=== PATIENT | female | born 2000 | race Caucasian/White ===

== ENCOUNTER 2024-03-15 14:03 | Outpatient (AMB) | payer BC, SELFPAY ==
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
== END 2024-03-15 14:58 | disposition home or self-care (01) ==
PROVIDERS: PCP Student in an Organized Health Care Education/Training Program; Visit Provider Clinical Nurse Specialist Psychiatric/Mental Health
DX: F40.10 Social phobia, unspecified (principal); F90.9 Attention-deficit hyperactivity disorder, unspecified type
CPT/HCPCS: 99214

== ENCOUNTER → 2024-03-15 14:03 | Outpatient (BNVA) | payer BC, SELFPAY | PROVIDERS: PCP Pediatrics; Visit Provider Clinical Nurse Specialist Psychiatric/Mental Health ==

== ENCOUNTER 2024-04-19 14:48 | Outpatient (AMB) | payer BC, SELFPAY ==
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
== END 2024-04-19 15:42 | disposition home or self-care (01) ==
LOC: HO.HOP 14:48
PROVIDERS: PCP Student in an Organized Health Care Education/Training Program; Visit Provider Clinical Nurse Specialist Psychiatric/Mental Health
DX: F90.9 Attention-deficit hyperactivity disorder, unspecified type (principal); F40.10 Social phobia, unspecified
CPT/HCPCS: 99214

== ENCOUNTER → 2024-04-19 14:48 | Outpatient (BNVA) | payer BC, SELFPAY | PROVIDERS: PCP Student in an Organized Health Care Education/Training Program; Visit Provider Clinical Nurse Specialist Psychiatric/Mental Health ==

== ENCOUNTER 2024-05-24 15:54 | Outpatient (AMB) | payer BC, SELFPAY ==
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
== END 2024-05-24 16:36 | disposition home or self-care (01) ==
LOC: HO.HOP 15:54
PROVIDERS: PCP Student in an Organized Health Care Education/Training Program; Visit Provider Clinical Nurse Specialist Psychiatric/Mental Health
DX: F41.1 Generalized anxiety disorder (principal); F40.10 Social phobia, unspecified
CPT/HCPCS: 99215

== ENCOUNTER → 2024-05-24 15:54 | Outpatient (BNVA) | payer BC, SELFPAY | PROVIDERS: PCP Student in an Organized Health Care Education/Training Program; Visit Provider Clinical Nurse Specialist Psychiatric/Mental Health ==

== ENCOUNTER 2024-07-04 15:35 | Outpatient (AMB) | payer BC, SELFPAY ==
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
== END 2024-07-04 16:22 | disposition home or self-care (01) ==
LOC: HO.HOP 15:35
PROVIDERS: PCP Student in an Organized Health Care Education/Training Program; Visit Provider Clinical Nurse Specialist Psychiatric/Mental Health
DX: F41.1 Generalized anxiety disorder (principal)
CPT/HCPCS: 99215

== ENCOUNTER → 2024-07-04 15:35 | Outpatient (BNVA) | payer BC, SELFPAY | PROVIDERS: PCP Student in an Organized Health Care Education/Training Program; Visit Provider Clinical Nurse Specialist Psychiatric/Mental Health ==

== ENCOUNTER 2024-08-11 17:38 | Outpatient (AMB) | payer OTHER, SELFPAY ==
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
== END 2024-08-11 17:40 | disposition home or self-care (01) ==
LOC: HO.HOP 17:39
PROVIDERS: PCP Student in an Organized Health Care Education/Training Program; Visit Provider Clinical Nurse Specialist Psychiatric/Mental Health
DX: F41.1 Generalized anxiety disorder (principal); F90.0 Attention-deficit hyperactivity disorder, predominantly inattentive type; F40.10 Social phobia, unspecified
CPT/HCPCS: 99214

== ENCOUNTER → 2024-08-11 17:38 | Outpatient (BNVA) | payer OTHER, SELFPAY | PROVIDERS: PCP Student in an Organized Health Care Education/Training Program; Visit Provider Clinical Nurse Specialist Psychiatric/Mental Health | DX: F41.1 Generalized anxiety disorder (principal); F90.0 Attention-deficit hyperactivity disorder, predominantly inattentive type; F40.10 Social phobia, unspecified ==

== ENCOUNTER 2024-09-08 10:33 | Outpatient (AMB) | payer OTHER, SELFPAY ==
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
== END 2024-09-08 10:37 | disposition home or self-care (01) ==
LOC: HO.HOP 10:33
PROVIDERS: PCP Student in an Organized Health Care Education/Training Program; Visit Provider Clinical Nurse Specialist Psychiatric/Mental Health
DX: F41.1 Generalized anxiety disorder (principal); F90.0 Attention-deficit hyperactivity disorder, predominantly inattentive type; F40.10 Social phobia, unspecified
CPT/HCPCS: 99214

== ENCOUNTER → 2024-09-08 10:33 | Outpatient (BNVA) | payer OTHER, SELFPAY | PROVIDERS: PCP Student in an Organized Health Care Education/Training Program; Visit Provider Clinical Nurse Specialist Psychiatric/Mental Health ==

== ENCOUNTER 2024-12-08 18:00 | Outpatient (AMB) | payer OTHER, SELFPAY ==
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
== END 2024-12-08 18:01 | disposition home or self-care (01) ==
LOC: HO.HOP 18:00
PROVIDERS: PCP Student in an Organized Health Care Education/Training Program; Visit Provider Clinical Nurse Specialist Psychiatric/Mental Health
DX: F41.1 Generalized anxiety disorder (principal); F90.0 Attention-deficit hyperactivity disorder, predominantly inattentive type; F40.10 Social phobia, unspecified
CPT/HCPCS: 98006

== ENCOUNTER 2025-02-09 11:52 | Outpatient (AMB) | payer OTHER, SELFPAY ==
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
--- OUTSIDE RECORDS SUMMARY | 2025-02-09 15:19 | XMS_ITS | Clinical Summary ---
Author Organization [facility] Address [address] [place] [phone] Phone Care Team Providers Care Frontload Driver Name Role Phone Unavailable Primary Care Provider Unavailabl e Allergies No known active allergies Medications NUVARING 0.12-0.015 MG/24HR vaginal ring Insert 1 Units into the vagina. 9 10/27/2018 Active sertraline 100 MG tablet Take 1 tablet by mouth daily. 5 11/03/2018 Active metoprolol succinate XL 50 MG 24 hr tablet Take 50 mg by mouth daily. 1 02/28/2019 Active valACYclovir 500 MG tablet TAKE 1 TABLET BY MOUTH TWICE A DAY FOR 14 DAYS 1 06/28/2019 Active Active Problems Problem Noted Date Diagnosed Date Asthma, exercise induced 05/30/2019 Substance use disorder 05/26/2019 Assessment & Plan (05/26/2019 11:15 AM EDT): marijuana Anxiety 11/15/2018 Major depressive disorder with single episode, i n remission 11/15/2018 Immunizations Immunization Administration Dates Next Due HPV Vaccine 9 Valent 09/28/2023,07/08/2019 Hep A, Adult 09/21/2023 Hep A, ped/adol 05/26/2019 Hep B, ped/adol 09/17/2017,10/07/2016,07/21/2016 IPV 05/26/2019 Influenza, injectable, MDCK, preservative free, quadrivalent 09/02/2023 Influenza, injectable, quadr ivalent, preservative free 12/05/2021 MMR 09/30/2012,08/12/2012 Meningococcal Conj (Menactra) MCV4P 09/17/2017 PPD Test 05/26/2019 Tdap 09/21/2023, 3,09/30/2012,08/12 Typhoid, ViCPs 10/12/2023 Social History Tobacco Use Types Packs/Day Years Used Date Smoking Tobacco: Every Day Smokeless Tobacco: Never Tobacco Cessation:Counseling Given: Yes Comments:tried a cigarette once Alcohol Use Standard Drinks/Week Comments Not Currently 0 (1 standard drink = 0.6 oz pur e alcohol) has tried alcohol Hunger/Food Answer Date Recorded In the last 12 months, did y ou or your family ever eat less than you felt you should because there wasn't enough money for food? No 05/26/2019 Stable Housing Answer Date Recorded Are you worried that in the next 2 months you may not have stable housing? No 05/26/2019 Transportation Concerns Answer Date Rec orded In the last 12 months, have you or your family ever had to go without healthcare because you didn't have a way to get there? No 05/26/2019 Hazards in Home Answer Date Recorded Think about the place you li ve. Do you have problems with any of the following? Pests (mice or roaches), mold, no/not working smoke detectors, water leaks, no window guards. No 2018 Financing Utilities Answer Date Recorde d In the last 12 months, has t he electric, gas, oil, or water company threatened to shut off your services in your home? No 05/26/2019 Safety at Home Answer Date Recorded Are you or your family worried about feeling saf e in your home? No 05/26/2019 Outside Support Answer Date Recorded Do you feel that you need mo re support from other people or programs to help you care for yourself or your family? No 05/26/2019 Understanding Health Concerns Answer Da te Recorded Do you need help understandi ng your or your child's healthcare needs (diagnosis, medications, plan, etc.)? No 05/26/2019 Financing Health Concerns Answer Date R ecorded In the last 12 months, was t here a time when your child needed to see a doctor or get medications or supplies but could not because of cost? No 05/26/2019 Missing School or Work Answer Date Kuldip rded Did you or your child miss s chool or work because of a health problem that could have been avoided? Yes 05/26/2019 Comments No Sex and Gender Information Value Date Recorded Sex Assigned at Not on file Legal Sex Female 4:20 PM EST Gender Identity Not on file Sexual Orientation Not on file Last Filed Vital Signs Vital Sign Reading Time Taken Comments Blood Pressure 107/69 05/26/2019 9:03 AM EDT Pulse 64 07/24/2023 1:41 PM EDT Temperature 36.5 ??C (97.7 ??F) 07/24/2023 1:41 PM ED T Respiratory Rate - - Oxygen Saturation 97% 07/24/2023 1:41 PM EDT Inhaled Oxygen Concentration - - Weight 56 kg (123 lb 6.4 oz) 07/24/2023 1:41 PM EDT Height 171.5 cm (5' 7.5 ) 05/26/2019 9:03 AM EDT Body Mass Index 19.04 05/26/2019 9:03 AM EDT Plan of Treatment Health Maintenance Due Date Last Done Comments Men B Vaccine (1 of 2 - Standard) 2017 IPV Vaccines (2 of 3 - Adult catch-up series) 06/23/2019 05/26/2019 HPV Vaccines (3 - 3-dose series) 12/21/2023 09/28/2023, 07/08/2019 Influenza Vaccines (#1) 2024 09/02/2023, 12/05 COVID-19 Vaccine (2 - season) 2024 09/02/2023 DTaP,Tdap,and Td Vaccines (5 - Td or Tdap) 09/21/2033 09/21/2023, 04/04/2013, 09/30/2012, Additional history exists MMR Vaccines Completed 09/30/2012, 08/12/2012 Hepatitis B Vaccines Completed 09/17/2017, 10/07/2016, 07/21/2016 Meningococcal Vaccine Completed 09/17/2017 Hepatitis A Vaccines Completed 09/21/2023, 05/26/20 19 HIB Vaccines Aged Out No longer eligi ble based on patient's age to complete this topic Pneumococcal Vaccine Aged Out No long er eligible based on patient's age to complete this topic
== END 2025-02-09 11:52 | disposition home or self-care (01) ==
LOC: HO.HOP 11:52
PROVIDERS: PCP Student in an Organized Health Care Education/Training Program; Visit Provider Clinical Nurse Specialist Psychiatric/Mental Health
DX: F41.1 Generalized anxiety disorder (principal); F90.0 Attention-deficit hyperactivity disorder, predominantly inattentive type; F40.10 Social phobia, unspecified
CPT/HCPCS: 99214

== ENCOUNTER → 2025-02-09 11:52 | Outpatient (BNVA) | payer OTHER, SELFPAY | PROVIDERS: PCP Student in an Organized Health Care Education/Training Program; Visit Provider Clinical Nurse Specialist Psychiatric/Mental Health | DX: F41.1 Generalized anxiety disorder (principal); F90.0 Attention-deficit hyperactivity disorder, predominantly inattentive type; F40.10 Social phobia, unspecified ==

== ENCOUNTER 2025-06-12 10:57 | Outpatient (AMB) | payer OTHER, SELFPAY ==
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
--- OUTSIDE RECORDS SUMMARY | 2025-06-12 11:57 | XMS_ITS | Clinical Summary ---
Author Organization [facility] Address [address] [place] [id number] Phone Care Team Providers Care Bread Icer Name Role Phone Unavailable Primary Care Provider [...] [phone] 07/24/2023 1:41 PM EDT Temperature 36.5 C (97.7 F) 07/24/2023 1:41 PM EDT Respiratory Rate - - Oxygen Saturation 97% 07/24/2023 1:41 PM EDT Inhaled Oxygen Concentration - - Weight 56 kg (123 lb 6.4 oz) 07/24/2023 1:41 PM EDT Height 171.5 cm (5' 7.5 ) 05/26/2019 9:03 AM EDT Body Mass Index 19.04 05/26/2019 9:03 AM EDT Plan of Treatment Health Maintenance Due Date Last Done Comments IPV Vaccines (2 of 3 - Adult catch-up series) 06/23/2019 05/26/2019 HPV Vaccines (3 - 3-dose series) 12/21/2023 09/28/2023, 07/08/2019 COVID-19 Vaccine (2 - season) 2024 09/02/2023 Influenza Vaccines (#1) 2025 09/02/2023, 12/05 DTaP,Tdap,and Td Vaccines (5 - Td or Tdap) 09/21/2033 09/21/2023, 04/04/2013, 09/30/2012, Additional history exists MMR Vaccines Completed 09/30/2012, 08/12/2012 Hepatitis B Vaccines Completed 09/17/2017, 10/07/2016, 07/21/2016 Meningococcal Vaccine Completed 09/17/2017 Hepatitis A Vaccines Completed 09/21/2023, 05/26/20 19 HIB Vaccines Aged Out No longer eligi ble based on patient's age to complete this topic Men B Vaccine Aged Out No longer elig ible based on patient's age to complete this topic Pneumococcal Vaccine Aged Out No long er eligible based on patient's age to complete this topic
== END 2025-06-12 11:11 | disposition home or self-care (01) ==
LOC: HO.HOP 10:57
PROVIDERS: PCP Student in an Organized Health Care Education/Training Program; Visit Provider Clinical Nurse Specialist Psychiatric/Mental Health
DX: F41.1 Generalized anxiety disorder (principal); F90.0 Attention-deficit hyperactivity disorder, predominantly inattentive type; F40.10 Social phobia, unspecified
CPT/HCPCS: 99214

== ENCOUNTER 2025-08-08 10:18 | Outpatient (AMB) | payer OTHER, SELFPAY ==
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
--- OUTSIDE RECORDS SUMMARY | 2025-08-08 12:05 | XMS_ITS | Clinical Summary ---
Author Organization [facility] Address [address] [place] [phone] Phone Care Team Providers Care Night Monitor Name Role Phone Reina Almeida Primary Care Provider Allergies No known active allergies Medications sertraline (ZOLOFT) 100 MG tablet Active methylphenidate HCl (RITALIN) 5 MG tablet Occasionally as needed 3 Active Lactobacillus acidophilus (PROBIOTIC ORAL) Take by mouth. Activ e metoprolol succinate (TOPROL-XL) 25 MG 24 hr tabletIndicatio ns:Anxiety Take 1 tablet (25 mg total) by mouth daily for 14 days. 14 tablet 4 Active escitalopram oxalate (LEXAPRO) 10 MG tablet 15 mg. 4 Active etonogestreL-et hinyl estradioL (NUVARING) 0.12-0.015 mg/24 hr vaginal ring Insert vaginally and leave in place for 3 consecutive weeks, then remove for 1 week. Insert vaginally and leave in place for 3 consecutive weeks, then remove for 1 week. 3 each 6 4 Active Active Problems Problem Noted Date Diagnosed Date Annual physical exam 03/04/2024 Assessment & Plan (03/04/2024 4:02 PM EDT): This is a 23 y.o. female who presents for a complete physical exam. Past medical history, surgical history, social history, family history and allergies reviewed and document in chart. -Blood pressure taken, no signs of hypertension. -General health screening appropriate for age reviewed -General nutrition recommendations reviewed: 5 servings of fruits and vegetables, adequate protein. -Exercise recommendations reviewed: 150 minutes of cardiovascular exercise weekly. At least two strength training sessions weekly for muscle mass and bone health. -Breast cancer screening discussed: NA -Colon cancer screening discussed: NA -Cervical cancer screening discussed: Last pap: July 2021. Result: ASCUS/HPV+. Will repeat in July 2024. -Smoking cessation: NA -Lung Cancer Screening: NA -Abdominal Aortic Aneurysm: NA -Osteoporosis screening discussed: NA -Prediabetes and Type 2 Diabetes Screening: NA -Hyperlipidemia screening for people 35 - 70 with BMI >25: NA -STI screening: Ordered -One lifetime HIV and Hep C test: Ordered -IPV screen: negative -PHQ2: 0 -Immunizations reviewed: Due for 3rd Gardisil -Labs as ordered -Regular vision and dental exams recommended: UTD -Annual physical exam recommended Atypical squamous cells of u ndetermined significance (ASCUS) on Papanicolaou smear of cervix 10/09/2023 Assessment & Plan (03/04/2024 3:36 PM EDT): Jul 2023. ASCUS/HPV+. Plan to repeat pap in 1 year. Sees gynecology. HSV (herpes simplex virus) anogenital infection 10/09/2023 Assessment & Plan (03/04/2024 3:38 PM EDT): Diagnosed in 2017- was having recurrent genital outbreaks. She was started on suppressive therapy but has not been taking. Has been a long time since she had an outbreak. Will call in the future if she has an outbreak. Assessment & Plan (10/09/2023 9:32 AM EST): Reviewed outbreak history as well as likely first oral outbreak. Option for episodic treatment vs daily suppression discussed. Kenji would like to try daily suppression. Rx sent. We also discussed potential benefit of taking lysine to reduce outbreaks. Encouraged reaching out if she continues to have outbreaks or with any other questions/concerns. Anxiety 11/15/2018 Assessment & Plan (03/04/2024 4:18 PM EDT): Has a psychiatrist. Recently discussing a possible ADHD diagnosis. Trialed Ritilin in the past and found it helpful. Difficult transition after leaving [facility] and going to public school. Ended up going back to [employer] to finish high school. Had some academic testing which mostly showed her anxiety was getting the way of work. Taking sertraline 100mg daily. Was prescribed Metoprolol XR 50mg daily in 10th grade by psychiatrist for somatic anxiety symptoms. Does not feel like it made a difference. Will decrease to 25mg daily, see how she feels and then discontinue. Will check in in two weeks to let me know. Working with psychiatrist to tweak medications. Sees therapist. Major depressive disorder with single episode, i n remission 11/15/2018 Resolved Problems Problem Noted Date Diagnosed Date Resolved Date Counseling about travel 11/10/2023 0403/2024 Assessment & Plan (11/10/2023 6:13 PM EST): Leaving for [facility] for 2 months where she will be in and out of endemic areas for malaria. She has received all required vaccinations. -Malarone prescribed. Patient does not need to take prophylaxis for the first week as she will be in [facility]. -She will then begin taking the medication 2 days prior to leaving for the endemic area. She will continue to take the medication throughout remainder of her trip and for 1 week afterwards. -We did discuss possibly a break from medication while she is in the [facility], making sure that she restarts the medication 2 days prior to being in an endemic area and to continue for 1 week afterwards. Patient voiced understanding. Asthma, exercise induced 05/30/201903/2024 Assessment & Plan (03/04/2024 3:34 PM EDT): Exercised induced Substance use disorder 05/26/201903/04 Overview (03/01/2024): Last Assessment & Plan: marijuana Encounters Date Type Department Care Team Description 06/30/2025 Telephone [facility] [address] [place] [address] Nita Perez CNM Appointment from Last 3 Months Immunizations Immunization Administration Dates Next Due HPV9 03/04/2024,09/28/2023,07/08/2019 02/29/2024 Hepatitis A, Adult 09/21/2023 Hepatitis A, ped/adol, 2 dose 05/26/2019 Hepatitis B, unspecified formulation 09/17/2017, 10/07/2016,07/21/2016 IPV 05/26/2019 Influenza Quadrivalent MDCK Preservative Free IM 09/02/2023 Influenza Quadrivalent Prese rvative Free IM 12/05/2021 MMR 09/30/2012,08/12/2012 Meningococcal MCV4, unspecif ied Formulation 09/17/2017 PPD Test 05/26/2019 Tdap 09/21/2023, 3,09/30/2012,07/31 Typhoid, ViCPs 10/12/2023 Family History Medical History Relation Comments Asthma Father Eczema Father No Known Problems Maternal Grandfather Airplane crash No Known Problems Maternal Grandmother Shot in t he head Cholelithiasis Mother Other Sister TBI Relation Status Comments Father Alive Maternal Grandfather Maternal Grandmother Mother Alive Paternal Grandfather Alive Paternal Grandmother Alive Sister Alive Social History Tobacco Use Types Packs/Day Years Used Date Smoking Tobacco: Never Smokeless Tobacco: Never Alcohol Use Standard Drinks/Week Comments Yes 0 (1 standard drink = 0.6 oz pur e alcohol) Weekends Education Answer Date Recorded Are you interested in more education? Not on panchito e 03/27/2023 Are you concerned about learning? Not on file 03/27/2023 No 03/27/2023 No 03/27/2023 Digital Access Answer Date Recorded No 04/27/2023 No 04/27/2023 Reliable internet access at home? Not on file 04/27/2023 Device with a working camera? Not on file Comments No Sex and Gender Information Value Date Recorded Sex Assigned at Female 03/04/2024 3:21 PM EDT Legal Sex Female 8:46 PM EDT Gender Identity Female 03/04/2024 3:21 PM EDT Sexual Orientation Queer 03/04/2024 3: 21 PM EDT Last Filed Vital Signs Vital Sign Reading Time Taken Comments Blood Pressure 100/70 07/21/2024 12:00 PM EDT Pulse 65 03/04/2024 3:21 PM EDT Temperature 36.3 C (97.4 F) 11/10/2023 4:31 PM EST Respiratory Rate - - Oxygen Saturation 99% 03/04/2024 3:21 PM EDT Inhaled Oxygen Concentration - - Weight 50.8 kg (112 lb) 07/21/2024 12:00 PM EDT Height 178.7 cm (5' 10.35 ) 07/21/2024 12:00 PM EDT Body Mass Index 15.91 07/21/2024 12:00 PM EDT Plan of Treatment Upcoming Encounters Date Type Department Care Team (Late st Contact Info) Description 04/24/2026 10:00 AM EDT Office Visit [facility] [address] [place] [address] Reina Almeida [address] [facility] [place] [address] [email or web address] Health Maintenance Due Date Last Done Comments SMOKING Hx and SMOKELESS TOBACCO SCREENING 2014 DEPRESSION SCREENING 03/04/2025 03/04/2024 INFLUENZA VACCINE (#1) 2025 09/02/2023, 2021 CHLAMYDIA SCREENING 07/06/2025 07/06/2024, 2 PAP SMEAR 07/21/2025 07/21/2024, 07/31/2023 COVID-19 VACCINE ( season) 2025 09/02/2023 Adult Td,Tdap Booster 09/21/2033 09/21/2023 , 04/04/2013, 09/30/2012, Additional history exists MENINGOCOCCAL VACCINES (ACWY) Completed 09/17/2017 HEPATITIS A VACCINES Completed 09/21/2023, 05/26/20 19 HPV VACCINES Completed 03/04/2024, 09/01, 07/08/2019 HEPATITIS C SCREENING Completed 07/06/2024 HIV ONE-TIME SCREENING (18-65 YEARS) Completed 07/06/2024 HIB VACCINES Aged Out No longer eligi ble based on patient's age to complete this topic MENINGOCOCCAL VACCINES (B) Aged Out N o longer eligible based on patient's age to complete this topic PNEUMOCOCCAL VACCINES (0-49 years) Aged Out No longer eligible based on patient's age to complete this topic Medical Devices Not on file Procedures Procedure Name Priority Date/Time Associated Diagnosis Comments PAP TEST Routine 07/21/2024 12:00 AM EDT CHLAMYDIA TRACHOMATIS AND NEISSERIA GONORRHOEAE NUCLEIC ACID DETECTION Routine 07/06/2024 2:55 PM EDT Counseling for sexually transmitted disease HEPATITIS C ANTIBODY, QUALITATIVE Routine 07/06/2024 2:55 PM EDT Need for hepatitis C screening test from Last 3 Months or Most Recently Relevant to Health Maintenance Results * Pap Test (07/21/2024 12:00 AM EDT) 07/21/2024 07/22/2024 10: 39 AM EDT Narrative SEE NARRATIVE - 07/29/2024 10:57 [place] [address] Fiberglass Roller: Mily Escobar MD MACHINE PULLER OVER Cytology Report FINAL DIAGNOSIS A. PAP SMEAR (THIN PREP) CE: SPECIMEN ADEQUACY: Satisfactory for evaluation; transformation zone present. INTERPRETATION: NEGATIVE FOR INTRAEPITHELIAL LESION OR MALIGNANCY. This specimen was analyzed by the automated ThinPrep Imaging System (CBA PHARMA Sb.) and the selected fallon were reviewed by a knot cutter. Electronically Signed Out By: MINDY Patel(ASCP) The Pap test is a screening test primarily for squamous cancers and precursors and has associated false-negative and false-positive results. New technologies such as liquid-based preparations may decrease but will not eliminate all false-negative results. Regular sampling and follow-up of unexplained clinical signs and symptoms are recommended to minimize false negative results. CLINICAL HISTORY Date of Last Menstrual Period: 07-12-2024 Contraceptive History: Nuva Ring Other Clinical Conditions: Screening Pap SPECIMEN SOURCE A: PAP SMEAR (THIN PREP) CE Patient Name: KENJI PIZARRO : 2000 (Age: 24) Sex: F Institution: [facility] Location: [facility] Date of Collection: 07/21/2024 Date of Reported: 07/29/2024 10:57 Results to: Nita Perez CNM Nita Perez CNErnesto CYTOLOGY ORDERABLES Natacha l Result SEE NARRATIVE * Chlamydia Trachomatis and Neisseria Gonorrhoeae Nucleic Acid Detection (07/06/2024 2:55 PM EDT) CHLAMYDIA TRACHOMATIS Not Detected Not Detected [facility] NEISERIA GONORRHOEAE Not Detected Not Detected [facility] SPECIMEN TYPE URINE [facility] Urine (Urine) 07/06/2024 2:5 5 PM EDT 07/06/2024 3:11 PM EDT Reina Rossi-Emily NON CULTURE MICROBIOLOGY Fi nal Result Performing Organization Address [facility]/ZIP Co de Phone Number [address] [address] * Hepatitis C antibody, qualitative (07/06/2024 2:55 PM EDT) HCV NON-REACTIV E NON-REACTI VE [facility] Blood 07/06/2024 2:55 PM EDT 07/06/2024 3:02 PM EDT Reina Rossi-Emily LAB BLOOD ORDERABLES Final Result Performing Organization Address [facility] Co de Phone Number [address] [address] from Last 3 Months or Most Recently Relevant to Health Maintenance Insurance Ulule Ulule Ulule Ulule Ulule Ulule Care Teams Night Monitor Relationship Specialty Start Date End Date Reina Almeida [address] [place] [address], [address] [place] [address] [email or web address] PCP - General Family Medicine 09/28/23 Additional Source Comments The information contained in this document represents components of the legal health record. It is not the complete legal health record.[facility]
--- OUTSIDE RECORDS SUMMARY | 2025-08-08 12:05 | XMS_ITS | Clinical Summary ---
Author Organization [facility] Address [address] [place] [phone] Phone Care Team Providers Care Head Bookkeeper Name Role Phone Unavailable Primary Care Provider [...] series) 12/21/2023 09/28/2023, 07/08/2019 Influenza Vaccines (#1) 2025 09/02/2023, 12/05 COVID-19 Vaccine (2 - season) 2025 09/02/2023 DTaP,Tdap,and Td Vaccines (5 - Td [...]
== END 2025-08-08 10:31 | disposition home or self-care (01) ==
LOC: HO.HOP 10:18
PROVIDERS: PCP Student in an Organized Health Care Education/Training Program; Visit Provider Clinical Nurse Specialist Psychiatric/Mental Health
DX: F41.1 Generalized anxiety disorder (principal); F90.0 Attention-deficit hyperactivity disorder, predominantly inattentive type; F40.10 Social phobia, unspecified
CPT/HCPCS: 99214

== ENCOUNTER 2025-10-10 10:32 | Outpatient (AMB) | payer OTHER, SELFPAY ==
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
--- OUTSIDE RECORDS SUMMARY | 2025-10-10 12:07 | XMS_ITS | Clinical Summary ---
Author Organization [facility] Address [address] [place] [phone] Phone Care Team Providers Care Gore Inserter Name Role Phone Reina Almeida Primary Care Provider [phone] Allergies No known active allergies Medications sertraline [...] found it helpful. Difficult transition after leaving [facility] and going to public school. Ended up going back to [facility] to finish high school. Had some academic [...] Diagnosed Date Resolved Date Counseling about travel 11/10/202303/2024 Assessment & Plan (11/10/2023 6:13 PM EST): Leaving for [facility] for 2 months where she will be in and out of endemic areas for malaria. She has received all required vaccinations. -Malarone prescribed. Patient does not need to take prophylaxis for the first week as she will be in [facility]. -She will then begin taking the medication 2 days prior to leaving for the endemic area. She will continue to take the medication throughout remainder of her trip and for 1 week afterwards. -We did discuss possibly a break from medication while she is in the [facility], making sure that she restarts the medication 2 days prior to being in an endemic area and to continue for 1 week afterwards. Patient voiced understanding. Asthma, exercise induced 05/30/201903/2024 Assessment & Plan (03/04/2024 3:34 PM EDT): Exercised induced Substance use disorder 05/26/201903/04 Overview (03/01/2024): Last Assessment & Plan: marijuana Immunizations Immunization Administration Dates Next Due HPV9 03/04/2024,09/28/2023,07/08/2019 02/29/2024 Hepatitis A, Adult 09/21/2023 Hepatitis A, ped/adol, 2 dose 05/26/2019 Hepatitis B, unspecified formulation 09/17/2017, 10/07/2016,07/21/2016 INFLUENZA, SPLIT VIRUS, TRIVALENT PF 08/29/2025 IPV 05/26/2019 Influenza Quadrivalent MDCK Preservative Free [...] Care Team (Late st Contact Info) Description 11/27/2025 4:10 PM EST Office Visit [facility] [address] [place] [address] [place] [address] Allison Rausch, [employer] [address] [place] [address] 12/01/2025 3:00 PM EST Office Visit [facility] [address] [place] [address] Maeve John, [facility] [address] [facility], [address] [place] [address] [email or web address] Health Maintenance Due Date Last Done Comments SMOKING Hx and SMOKELESS TOBACCO SCREENING 2014 IPV VACCINES (2 of 3 - Adult catch-up series) 06/23/2019 05/26/2019 DEPRESSION SCREENING 03/04/2025 03/04/2024 CHLAMYDIA SCREENING 07/06/2025 07/06/2024, PAP SMEAR 07/21/2025 07/21/2024, 07/31/2023 COVID-19 VACCINE ( - season) 2025 09/02/2023 Adult Td,Tdap Booster 09/21/2033 09/21/2023 , 04/04/2013, 09/30/2012, Additional history exists MENINGOCOCCAL VACCINES (ACWY) Completed 09/17/2017 HEPATITIS A VACCINES Completed 09/21/2023, 05/26/20 19 HPV VACCINES Completed 03/04/2024, 09/01, 07/08/2019 HEPATITIS C SCREENING Completed 07/06/2024, 022 HIV ONE-TIME SCREENING (18-65 YEARS) Completed 07/06/2024 INFLUENZA VACCINE Completed 08/29/2025, , 12/05/2021 HIB VACCINES Aged Out No longer eligi [...] * Pap Test (07/21/2024 12:00 AM EDT) Report [address] [address] Lace Machine Operator: Mily Escobar MD HALL DIRECTOR Cytology Report FINAL DIAGNOSIS A. PAP SMEAR (THIN PREP) CE: SPECIMEN ADEQUACY: Satisfactory for evaluation; transformation zone present. INTERPRETATION: NEGATIVE FOR INTRAEPITHELIAL LESION OR MALIGNANCY. This specimen was analyzed by the automated ThinPrep Imaging System ([employer] and the selected fallon were reviewed by a ore grader. Electronically Signed Out By: MINDY Patel(ASCP) The [...] : 2000 (Age: 24) Sex: F Institution: [facility] Location: [facility] Date of Collection: 07/21/2024 Date of Reported: 07/29/2024 10:57 Results to: Nita Perez CNM [facility] Final Diagnosis A. PAP SMEAR (THIN PREP) CE: SPECIMEN ADEQUACY: Satisfactory for evaluation; transformation zone present. INTERPRETATION: NEGATIVE FOR INTRAEPITHELIAL LESION OR MALIGNANCY. This specimen was analyzed by the automated ThinPrep Imaging System ([employer].) and the selected fallon were reviewed by a ore grader. [facility] Conversion Type (Conversion Source) 07/21/2024 07/22/2024 10:39 AM EDT Nita GONZALEZ CYTOLOGY ORDERABLES Edit ed Result - Final [address] [address] * Chlamydia Trachomatis and Neisseria Gonorrhoeae Nucleic Acid Detection (07/06/2024 2:55 PM EDT) CHLAMYDIA TRACHOMATIS Not Detected Not Detected [facility] NEISERIA GONORRHOEAE Not Detected Not Detected [facility] SPECIMEN TYPE URINE [facility] Urine (Urine) 07/06/2024 2:5 5 PM EDT 07/06/2024 3:11 PM EDT us Reina Almeida LAB GENERAL ORDERABLES Natacha l Result [address] [address] * Hepatitis C antibody, qualitative (07/06/2024 2:55 PM EDT) HCV NON-REACTIV E NON-REACTI VE [facility] Blood 07/06/2024 2:55 PM EDT 07/06/2024 3:02 PM EDT Reina Almeida LAB BLOOD BKR ORDERABLES Fi nal Result [facility] [address] [place] [address] from Last 3 Months or Most Recently Relevant to Health Maintenance Insurance [employer] Care Teams Gore Inserter Relationship Specialty Start Date End Date Flum-Cucumber, Reina [address] [place] [address], [address] [place] [address] [email or web address] PCP - General Family Medicine 09/28/23 Additional Source Comments The information contained in this document represents components of the legal health record. It is not the complete legal health record.[facility]
--- OUTSIDE RECORDS SUMMARY | 2025-10-10 12:07 | XMS_ITS | Clinical Summary ---
Author Organization [facility] Address [address] [place] [phone] Phone Care Team Providers Care Fisher Net Name Role Phone Unavailable Primary Care Provider [...]
== END 2025-10-10 10:48 | disposition home or self-care (01) ==
LOC: HO.HOP 10:32
PROVIDERS: PCP Student in an Organized Health Care Education/Training Program; Visit Provider Clinical Nurse Specialist Psychiatric/Mental Health
DX: F41.1 Generalized anxiety disorder (principal); F90.0 Attention-deficit hyperactivity disorder, predominantly inattentive type; F40.10 Social phobia, unspecified
CPT/HCPCS: 99214